=== PATIENT | female | born 1980 | race Caucasian/White ===

== ENCOUNTER 2017-08-14 11:43 | Outpatient (CLI) | payer OTHER ==
--- NOTE | 2017-08-14 12:43 | CT ---
HEAD CT WITHOUT CONTRAST: History Syncope. Collapse. Hit left side of head. TECHNIQUE: Noncontrast head CT is performed from the skull base to the skull vertex. FINDINGS: No parenchymal hemorrhage. No extraaxial hematoma. No midline shift. Basilar cisterns are patent. Brain volume is less than expected for patient's age. Cortical hurley-white matter differentiation is preserved. Ventricles and sulci are patent and symmetric. Calvarium is intact. Adequate aeration of the sinuses and mastoid air cells. IMPRESSION: 1. No intracranial posttraumatic sequelae. 2. Atrophy. Brain volume, less than expected for patient's age. POS: [facility]
== END 2017-08-14 11:44 | disposition home or self-care (01) ==
LOC: CT 11:43
PROVIDERS: ATTEND Family Medicine
DX: R55 Syncope and collapse (principal); G31.9 Degenerative disease of nervous system, unspecified
CPT/HCPCS: 70450